=== PATIENT | male | born 1970 | race Caucasian/White ===

== ENCOUNTER 2017-12-11 14:44 | Emergency (ER) | payer MEDICAID ==
[2017-12-11] MEDS ORDERED: LIDOCAINE 1% (MDV) 20 ML INJ (15:41)
[2017-12-11] MEDS: LIDOCAINE 1% (MDV) 10 ML INJ INJ (15:49)
[2017-12-11] MEDS: morphine 4 MG/ML VIAL IV (16:03)
[2017-12-11] MEDS: ONDANSETRON 4 MG INJ IV (16:03)
[2017-12-11] MEDS: SOD CHLORIDE 0.9% 500 ML IV (16:04)
[2017-12-11] MEDS: DIPHTH/TET/ACEL PERTUSS (ADULT) 0.5 ML VIAL IM* (16:04)
[2017-12-11] MEDS: CEFAZOLIN 2 GM/50 ML (PMX) 50 ML IVPB (16:27)
[2017-12-11 17:09] LABS: ADD MAN DIFF? NO
[2017-12-11 17:13] LABS: WHITE BLOOD COUNT 9.8 10^3/ul (4.8-10.8)
[2017-12-11 17:13] LABS: BASOPHILS % 0.4 % (0.0-2.0); EOSINOPHILS # 0.1 10^3/ul (0.0-0.5); EOSINOPHILS % 0.8 % (0.0-7.0); HEMATOCRIT 45.6 % (42.0-52.0); HEMOGLOBIN 15.1 g/dl (14.0-18.0); LYMPHOCYTES # 1.9 10^3/ul (0.8-2.9); LYMPHOCYTES % 19.6 % (15.0-51.0); MEAN CORPUSCULAR HEMOGLOBIN 29.5 pg (29.0-33.0); MEAN CORPUSCULAR HGB CONC 33.1 g/dl (32.0-37.0); MEAN CORPUSCULAR VOLUME 89.1 fl (82.0-101.0); MEAN PLATELET VOLUME 10.4 fl (7.4-10.4); MONOCYTE # 0.9 10^3/ul (0.3-0.9); MONOCYTES % 9.3 % (0.0-11.0); NEUTROPHIL # 6.8 10^3/ul (1.6-7.5); NEUTROPHILS % 69.3 % (39.0-77.0); PLATELET COUNT 262 10^3/UL (140-415); RED BLOOD COUNT 5.12 10^6/ul (4.70-6.10); RED CELL DISTRIBUTION WIDTH 12.3 % (11.5-14.5)
[2017-12-11 17:32] LABS: ANION GAP 13 (8-16); BLOOD UREA NITROGEN 17 mg/dl (7-20); CALCIUM 9.6 mg/dl (8.4-10.2); CARBON DIOXIDE 27 mmol/L (21-31); CHLORIDE 104 mmol/L (97-110); CREATININE 0.88 mg/dl (0.61-1.24); GLUCOSE 123 mg/dl (70-220); SODIUM 140 mmol/L (135-144)
[2017-12-11 17:33] LABS: INR 0.91; PROTIME 12.3 Sec (11.9-14.9)
[2017-12-11 17:34] LABS: PARTIAL THROMBOPLASTIN TIME 30.7 Sec (23.0-35.0)
[2017-12-11] MEDS: HYDROmorphONE 0.5 MG/0.5 ML SYG IV (18:39)
== END 2017-12-11 18:52 | disposition short-term general hospital (02) ==
LOC: FTE 14:44 → E/R 18:52
DX: S62.621B Displaced fracture of middle phalanx of left index finger, initial encounter for open fracture (principal); M79.645 Pain in left finger(s); W45.0XXA Nail entering through skin, initial encounter; Y92.59 Other trade areas as the place of occurrence of the external cause; Z23 Encounter for immunization
CPT/HCPCS: 29130; 36415; 73140; 80048; 85025; 85610; 85730; 90471; 90715; 96374; 96375; 99285-25